=== PATIENT | female | born 1990 | race Caucasian/White ===

== ENCOUNTER 2020-07-25 15:27 | Emergency (ER) | payer BC, SELFPAY ==
--- NOTE | ~2020-07-25 | XR_ITS ---
EXAMINATION: XR forearm LT 2V INDICATION: Left arm pain TECHNIQUE: Two views of the left forearm are obtained. COMPARISON: None available FINDINGS: There is no fracture, dislocation, or subluxation. The bones, soft tissues, and joint space s are normal. IMPRESSION: 1. No acute osseous abnormality. Reviewed, dictated and finalized at location A.
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
[2020-07-25 15:40] VITALS: BP 141/79; PULSE 103; RESP 18; TEMP 37.3; O2SAT 98
== END 2020-07-25 16:05 | disposition home or self-care (01) ==
PROVIDERS: Emergency Provider Nurse Practitioner Family
DX: M79.632 Pain in left forearm (principal)
CPT/HCPCS: 73090; 99203; G0463

== ENCOUNTER 2021-07-01 14:13 | Emergency (ER) | payer BC, SELFPAY ==
[2021-07-01 14:25] VITALS: BP 175/88; PULSE 105; RESP 20; TEMP 37; O2SAT 98
--- NOTE | 2021-07-01 14:26 | ED.GENADULT ---
HPI - General Adult General Chief complaint: Upper Respiratory Infection Stated complaint: covid+ Time Seen by Provider: 07/01/21 14:27 Source: patient Mode of arrival: ambulatory Limitations: no limitations History of Present Illness HPI narrative: 30-year-old female patient presents to the [facility] with complaints of stuffy nose and a positive [id number] Covid test. Patient states that she is stuffy and runny nose for the past 3 days. Denies being a primary contact anybody that has been positive that she is aware of however she states this a girl at work has been missing for the last couple of days . Patient is concerned that she might of had Covid and the workplace did not tell them. Patient has been fully vaccinated with the Pfizer vaccine. Patient states that she took a home Covid test and she was concerned that she did it incorrectly because it came out positive right away. Patient wanted to come in today for confirmation. Related Data Home Medications Medication Instructions Recorded Confirmed No Home Medications 07/01/21 07/01/21 Allergies Allergy/AdvReac Type Severity Reaction Status Date / Time No Known Allergies Allergy Verified 07/01/21 14:33 Review of Systems Review of Systems: CONSTITUTIONAL: Denies fever, chills, or sweats. EYES: Denies visual changes, redness, or discharge. ENT: Positive rhinorrhea, congestion, denies sore throat, or otalgia. CARDIOVASCULAR: Denies chest pain, palpitations, or edema. RESPIRATORY: Denies cough or dyspnea. GASTROINTESTINAL: Denies abdominal pain, nausea, vomiting, or diarrhea. GENITOURINARY: Denies dysuria or hematuria. SKIN: Denies rash or itching. MUSCULOSKELETAL: Denies back pain, joint pain, or myalgia. NEUROLOGIC: Denies headache, numbness, or weakness. PSYCHIATRIC: Denies anxiety or depression. ON LICENSE OF [facility] Past Medical History Medical History (Updated 07/01/21 @ 14:39 by JEFFERY Monae) COVID-19 virus infection June 2021 Ovarian cyst Comments At the time of my signature I agree with nursing past medical history, surgical, social, and family history. There is no relevant family history pertinent to the presenting complaint. Exam Narrative: GENERAL: Well-appearing, well-nourished, and in no acute distress. HEAD: Normocephalic, atraumatic. EYES: PERRLA and EOMI. ENT: Nares clear, no rhinorrhea or epistaxis. Mucous membranes moist. Posterior pharynx with no erythema, tonsillar edema, exudates or lesions present. Bilateral TMs are clear with no erythema or foreign bodies to the canal. NECK: Supple. No lymphadenopathy CHEST: Clear to auscultation. No respiratory distress. HEART: Regular rate and rhythm. No murmur heard. Normal peripheral pulses. ABDOMEN: Soft, nontender, nondistended, normal active bowel sounds. EXTREMITIES: Normal range of motion. No edema. SKIN: Warm, dry, no rash. NEURO: No focal deficits. Alert and oriented x3. Course Vital Signs Vital signs: Vital Signs Temperature 37.0 C 07/01/21 14:25 Pulse Rate 105 H 07/01/21 14:25 Respiratory Rate 20 07/01/21 14:25 Blood Pressure 175/88 H 07/01/21 14:25 Pulse Oximetry 98 07/01/21 14:25 Temperature 37.0 C 07/01/21 14:25 Pulse Rate 105 H 07/01/21 14:25 Respiratory Rate 20 07/01/21 14:25 Blood Pressure 175/88 H 07/01/21 14:25 Pulse Oximetry 98 07/01/21 14:25 Vital signs reviewed The patient has been informed that they may have pre-hypertension or Hypertension based on a BP reading in the department. I recommend that the patient call the primary care provider listed on their discharge instructions or a physician of their choice this week to arrange follow up for further evaluation of possible pre-hypertension or Hypertension Medical Decision Making Differential Diagnosis Differential Diagnosis: Differential diagnosis: Allergic rhinitis, chronic sinusitis, tonsillitis, acute sinusitis, infectious mononucleosis, seasonal influenza, pertussis, dip
[2021-07-01 14:43] VITALS: BP 149/79
[2021-07-03 19:00] LABS: SARS-CoV-2 RNA PCR Positive
== END 2021-07-01 14:43 | disposition home or self-care (01) ==
PROVIDERS: Emergency Provider Nurse Practitioner Family
DX: U07.1 COVID-19 (principal)
CPT/HCPCS: 99213; C9803; G0463; U0003; U0005